=== PATIENT | male | born 1965 | race Caucasian/White ===

== ENCOUNTER 2025-02-25 14:52 | Inpatient (IN) | payer BC, MEDICARE ==
[~2025-02-25] VITALS: Ht 177.8 cm; Wt 100.3 kg
[2025-02-25] MEDS ORDERED: ABILIFY10 MG PO (14:55)
[2025-02-25] MEDS ORDERED: [UNRECOGNIZED DRUG - OTHER] IV (14:57)
[2025-02-25] MEDS ORDERED: DONEPEZIL HCL10 MG PO (14:59)
[2025-02-25] MEDS ORDERED: MEMANTINE HCL5 MG PO (15:00)
[2025-02-25] MEDS ORDERED: MULTI-VITAMIN1 EACH PO (15:01)
[2025-02-25] MEDS ORDERED: QUETIAPINE FUM100 M1 PO (15:02)
[2025-02-25] MEDS ORDERED: ROSUVASTATIN CA20 MG PO (15:03)
[2025-02-25] MEDS ORDERED: VALSARTAN160 MG PO (15:04)
[2025-02-25] MEDS ORDERED: ZOLOFT100 MG PO (15:04)
[2025-02-25] MEDS ORDERED: hydrOXYzine hydrochloride 50 MG/ML VIAL IM PRN (18:15)
[2025-02-25] MEDS ORDERED: LORazepam 1 MG TAB PO PRN (18:15)
[2025-02-25] MEDS ORDERED: Water, Sterile 10 ML VIAL IM PRN (18:20)
[2025-02-25] MEDS ORDERED: MG-AL HYDROXIDE/SIMETICONE 30 ML UDC PO PRN (18:55)
[2025-02-25] MEDS ORDERED: ACETAMINOPHEN 325 MG TAB PO PRN (18:55)
[2025-02-25] MEDS ORDERED: Menthol/Zinc Oxide 4 GM THIN T PRN (19:00)
[2025-02-25 19:30] VITALS: BP 143/72
[2025-02-25 20:51] VITALS: BP 143/72
[2025-02-25] MEDS ORDERED: DIVALPROEX (DR) 250 MG TAB PO SCH (21:00)
[2025-02-25] MEDS ORDERED: Memantine Hydrochloride 5 MG TAB PO SCH (21:00)
[2025-02-26 06:44] LABS: BASO # 0.0 10*3/uL (0.0-0.1); BASO % 0.7 % (0.0-1.0); EOS # 0.3 10*3/uL (0.0-0.4); EOS % 5.5 % (1.0-4.0); MEAN CELL VOLUME 94.9 fl (80.0-94.0); MEAN CORPUSCULAR HGB 29.9 pg (27.0-31.0); MEAN PLATELET VOLUME 10.1 fl (9.6-12.3); MONO # 0.5 10*3/uL (0.1-1.0); MONO % 9.5 % (3.0-9.0); NEUT # 3.7 10*3/uL (2.3-7.9); NEUT % 64.6 % (47.0-73.0); NUCLEATED RED BLOOD CELL 0.0 % (0.0-0.0); NUCLEATED RED BLOOD CELL 0.0 10*3/uL (0.0-0.0); PLATELET COUNT AUTOMATED 192 10*3/uL (130-400); RED CELL DISTRI WIDTH 12.8 % (0-14.5)
[2025-02-26 07:09] LABS: BUN 7 mg/dl (9-23); LDL CHOLESTEROL 71 mg/dL (9-159); SGPT/ALT 19 U/L (5-49); VALPROIC ACID (DEPAKENE) 14.8 ug/ml (50-100)
[2025-02-26 07:20] LABS: VITAMIN D, 25-HYDROXY 49.7 ng/mL (30-100)
[2025-02-26 08:41] VITALS: BP 141/72
[2025-02-26] MEDS ORDERED: Rivastigmine Tartrate 4.6 MG/24 HR PATCH T SCH (09:00)
[2025-02-26] MEDS ORDERED: HYDROCORTISONE 1% 28 GM TUBE T SCH (18:00)
[2025-02-26] MEDS ORDERED: HYDROCORTISONE 0.5% CREAM 30 GM TUBE T SCH (18:00)
[2025-02-26 20:00] VITALS: BP 131/67
[2025-02-26] MEDS ORDERED: Prazosin Hydrochloride 1 MG CAP PO SCH (21:00)
[2025-02-26] MEDS ORDERED: EUCERIN LOTION 120 GM TUBE T SCH (22:00)
[2025-02-26] MEDS ORDERED: PETROLATUM 42% 100 GM JAR T SCH (22:00)
[2025-02-27 08:00] VITALS: BP 139/71
[2025-02-27 19:48] VITALS: BP 128/58
[2025-02-28 08:00] VITALS: BP 178/81
[2025-02-28] MEDS ORDERED: Memantine Hydrochloride 5 MG TAB PO SCH (09:00)
[2025-02-28] MEDS ORDERED: METHYLFOLATE 7.5 MG PO SCH ×2 (10:00)
[2025-02-28 13:54] LABS: BILIRUBIN Negative (Negative); BLOOD Negative (Negative); CLARITY Clear (Clear); COLOR Yellow (Yellow); KETONE Negative (Negative); LEUKO ESTERASE Negative (Negative); NITRITE Negative (Negative); PH 7.0 (4.5-8.0); SPECIFIC GRAVITY 1.010 (1.001-1.030); UROBILINOGEN 1.0 E.U./dl (0.0-1.0)
[2025-02-28 14:09] LABS: EPITHELIAL CELLS 0-2; WBC 0-2 wbc/hpf (0-5)
[2025-02-28 20:00] VITALS: BP 118/75
[2025-03-01 08:00] VITALS: BP 123/53
[2025-03-01] MEDS ORDERED: DIVALPROEX (DR) 500 MG TAB PO SCH (09:00)
[2025-03-01] MEDS ORDERED: Rivastigmine Tartrate 9.5 MG/24 HR PATCH T SCH (09:00)
[2025-03-01] MEDS ORDERED: METHYLFOLATE 7.5 MG PO SCH (09:00)
[2025-03-01 20:00] VITALS: BP 118/56
[2025-03-01] MEDS ORDERED: diazePAM 10 MG/2 ML SYR IM ONE (21:10)
[2025-03-02 08:00] VITALS: BP 142/56
[2025-03-02 20:00] VITALS: BP 123/74
[2025-03-03 06:30] LABS: BASO # 0.0 10*3/uL (0.0-0.1); BASO % 0.5 % (0.0-1.0); EOS # 0.1 10*3/uL (0.0-0.4); EOS % 2.1 % (1.0-4.0); MEAN CELL VOLUME 94.5 fl (80.0-94.0); MEAN CORPUSCULAR HGB 30.2 pg (27.0-31.0); MEAN PLATELET VOLUME 10.3 fl (9.6-12.3); MONO # 0.8 10*3/uL (0.1-1.0); MONO % 12.1 % (3.0-9.0); NEUT # 4.1 10*3/uL (2.3-7.9); NEUT % 65.0 % (47.0-73.0); NUCLEATED RED BLOOD CELL 0.0 % (0.0-0.0); NUCLEATED RED BLOOD CELL 0.0 10*3/uL (0.0-0.0); PLATELET COUNT AUTOMATED 183 10*3/uL (130-400); RED CELL DISTRI WIDTH 13.1 % (0-14.5)
[2025-03-03 06:54] LABS: BUN 13 mg/dl (9-23); SGPT/ALT 19 U/L (5-49)
[2025-03-03 08:04] VITALS: BP 129/69
[2025-03-03] MEDS ORDERED: RIVASTIGMINE 13.3 MG/24 HR TDM T SCH (09:00)
[2025-03-04 09:34] VITALS: BP 124/66
[2025-03-04 20:00] VITALS: BP 117/90
[2025-03-05 08:46] VITALS: BP 138/73
[2025-03-05 20:00] VITALS: BP 122/72
[2025-03-06 08:00] VITALS: BP 156/60
[2025-03-06 20:30] VITALS: BP 103/66
[2025-03-06] MEDS ORDERED: DIVALPROEX SODIUM 125 MG CAP PO SCH (21:00)
[2025-03-07 08:00] VITALS: BP 141/72
[2025-03-07 20:00] VITALS: BP 151/89
[2025-03-08 08:00] VITALS: BP 128/80
[2025-03-08 11:56] LABS: BASO # 0.0 10*3/uL (0.0-0.1); BASO % 0.3 % (0.0-1.0); EOS # 0.0 10*3/uL (0.0-0.4); EOS % 0.1 % (1.0-4.0); MEAN CELL VOLUME 94.7 fl (80.0-94.0); MEAN CORPUSCULAR HGB 29.7 pg (27.0-31.0); MEAN PLATELET VOLUME 10.4 fl (9.6-12.3); MONO # 1.3 10*3/uL (0.1-1.0); MONO % 9.4 % (3.0-9.0); NEUT # 11.7 10*3/uL (2.3-7.9); NEUT % 84.9 % (47.0-73.0); NUCLEATED RED BLOOD CELL 0.0 % (0.0-0.0); NUCLEATED RED BLOOD CELL 0.0 10*3/uL (0.0-0.0); PLATELET COUNT AUTOMATED 227 10*3/uL (130-400); RED CELL DISTRI WIDTH 12.9 % (0-14.5)
[2025-03-08 12:19] LABS: BUN 15 mg/dl (9-23); SGPT/ALT 49 U/L (5-49)
[2025-03-08 13:36] LABS: BILIRUBIN Negative (Negative); BLOOD Negative (Negative); CLARITY Clear (Clear); COLOR Dark Yellow (Yellow); KETONE 1+ (Negative); LEUKO ESTERASE Negative (Negative); NITRITE Negative (Negative); PH 6.5 (4.5-8.0); SPECIFIC GRAVITY >= 1.030 (1.001-1.030); UROBILINOGEN 1.0 E.U./dl (0.0-1.0)
[2025-03-08 13:52] LABS: BACTERIA 1+; EPITHELIAL CELLS 0-2; MUCOUS TRACE; WBC 0-2 wbc/hpf (0-5)
[2025-03-08] MEDS ORDERED: TRIAMCINOLONE ACETONIDE 15 GM TUBE T SCH (14:45)
[2025-03-08] MEDS ORDERED: SODIUM CHLORIDE 0.9% 1,000 ML IV ONE (18:55)
[2025-03-08 20:00] VITALS: BP 105/56
[2025-03-09 06:27] LABS: MEAN CELL VOLUME 93.5 fl (80.0-94.0); MEAN CORPUSCULAR HGB 29.5 pg (27.0-31.0); MEAN PLATELET VOLUME 10.3 fl (9.6-12.3); NUCLEATED RED BLOOD CELL 0.0 % (0.0-0.0); NUCLEATED RED BLOOD CELL 0.0 10*3/uL (0.0-0.0); PLATELET COUNT AUTOMATED 199 10*3/uL (130-400); RED CELL DISTRI WIDTH 13.0 % (0-14.5)
[2025-03-09 06:38] LABS: MANUAL DIFF REFLEX YES
[2025-03-09 06:48] LABS: BUN 15 mg/dl (9-23)
[2025-03-09 08:13] LABS: PLATELET SUFFICIENCY NORMAL (NORMAL)
[2025-03-09 08:28] VITALS: BP 131/91
[2025-03-09] MEDS ORDERED: FOAM BANDAGE 5X5 T ONE (16:35)
[2025-03-10 06:24] LABS: MEAN CELL VOLUME 93.3 fl (80.0-94.0); MEAN CORPUSCULAR HGB 30.3 pg (27.0-31.0); MEAN PLATELET VOLUME 10.7 fl (9.6-12.3); NUCLEATED RED BLOOD CELL 0.0 % (0.0-0.0); NUCLEATED RED BLOOD CELL 0.0 10*3/uL (0.0-0.0); PLATELET COUNT AUTOMATED 212 10*3/uL (130-400); RED CELL DISTRI WIDTH 12.7 % (0-14.5)
[2025-03-10 06:31] LABS: MANUAL DIFF REFLEX YES
[2025-03-10 07:13] LABS: PLATELET SUFFICIENCY NORMAL (NORMAL)
[2025-03-10 08:00] VITALS: BP 126/72
[2025-03-10 20:21] VITALS: BP 126/83
[2025-03-11 09:20] VITALS: BP 141/77
[2025-03-11 20:00] VITALS: BP 86/55
[2025-03-12 08:00] VITALS: BP 106/63
[2025-03-12 20:00] VITALS: BP 115/96
[2025-03-13 07:20] LABS: BASO # 0.1 10*3/uL (0.0-0.1); BASO % 0.7 % (0.0-1.0); EOS # 0.3 10*3/uL (0.0-0.4); EOS % 2.8 % (1.0-4.0); MEAN CELL VOLUME 93.0 fl (80.0-94.0); MEAN CORPUSCULAR HGB 30.0 pg (27.0-31.0); MEAN PLATELET VOLUME 10.0 fl (9.6-12.3); MONO # 1.5 10*3/uL (0.1-1.0); MONO % 14.2 % (3.0-9.0); NEUT # 7.1 10*3/uL (2.3-7.9); NEUT % 67.7 % (47.0-73.0); NUCLEATED RED BLOOD CELL 0.0 % (0.0-0.0); NUCLEATED RED BLOOD CELL 0.0 10*3/uL (0.0-0.0); PLATELET COUNT AUTOMATED 258 10*3/uL (130-400); RED CELL DISTRI WIDTH 13.0 % (0-14.5)
[2025-03-13 08:00] VITALS: BP 120/88
[2025-03-13 08:00] LABS: BUN 25 mg/dl (9-23); SGPT/ALT 84 U/L (5-49)
[2025-03-13 20:00] VITALS: BP 150/89
[2025-03-14 08:20] VITALS: BP 90/50
[2025-03-14 20:00] VITALS: BP 116/70
[2025-03-15 09:26] VITALS: BP 118/65
[2025-03-15] MEDS ORDERED: RIVASTIGMINE1 EAC2 T (12:18)
[2025-03-15] MEDS ORDERED: MEMANTINE HCL10 MG PO (12:18)
[2025-03-15] MEDS ORDERED: MIRTAZAPINE15 M2 PO (12:18)
[2025-03-15] MEDS ORDERED: DEPLIN-ALGAL O1 EACH PO (12:19)
[2025-03-15 20:00] VITALS: BP 140/72
[2025-03-15] MEDS ORDERED: Mirtazapine 15 MG TAB PO SCH (21:00)
[2025-03-16 08:00] VITALS: BP 98/56
[2025-03-16 20:00] VITALS: BP 131/91
[2025-03-17 08:00] VITALS: BP 111/54
[2025-03-17 20:00] VITALS: BP 108/70
[2025-03-18 07:11] LABS: BUN 11 mg/dl (9-23); SGPT/ALT 50 U/L (5-49)
[2025-03-18 07:48] LABS: BASO # 0.0 10*3/uL (0.0-0.1); BASO % 0.5 % (0.0-1.0); EOS # 0.4 10*3/uL (0.0-0.4); EOS % 4.6 % (1.0-4.0); MEAN CELL VOLUME 94.2 fl (80.0-94.0); MEAN CORPUSCULAR HGB 29.7 pg (27.0-31.0); MEAN PLATELET VOLUME 10.0 fl (9.6-12.3); MONO # 1.2 10*3/uL (0.1-1.0); MONO % 14.2 % (3.0-9.0); NEUT # 5.6 10*3/uL (2.3-7.9); NEUT % 63.3 % (47.0-73.0); NUCLEATED RED BLOOD CELL 0.0 % (0.0-0.0); NUCLEATED RED BLOOD CELL 0.0 10*3/uL (0.0-0.0); PLATELET COUNT AUTOMATED 250 10*3/uL (130-400); RED CELL DISTRI WIDTH 12.7 % (0-14.5)
[2025-03-18 08:00] VITALS: BP 103/56
[2025-03-18 20:11] VITALS: BP 128/62
== END 2025-03-18 23:22 | DRG 883 ==
LOC: 3N 14:52
PROVIDERS: Counselor Professional; Nurse Practitioner; Nurse Practitioner Women's Health; ADMIT Psychiatry & Neurology Psychiatry; ATTEND Psychiatry & Neurology Psychiatry
PROC: GZHZZZZ Group Psychotherapy (ICD-10-PCS; principal; 2025-02-27)
PROC: GZ56ZZZ Individual Psychotherapy, Supportive (ICD-10-PCS; 2025-02-27)
DX: F63.81 Intermittent explosive disorder (principal); F02.811 Dementia in other diseases classified elsewhere, unspecified severity, with agitation; F02.83 Dementia in other diseases classified elsewhere, unspecified severity, with mood disturbance; E44.0 Moderate protein-calorie malnutrition; F33.9 Major depressive disorder, recurrent, unspecified; E87.1 Hypo-osmolality and hyponatremia; G30.0 Alzheimer's disease with early onset; I10 Essential (primary) hypertension; D53.9 Nutritional anemia, unspecified; D72.829 Elevated white blood cell count, unspecified; R73.9 Hyperglycemia, unspecified; Z88.8 Allergy status to other drugs, medicaments and biological substances; Z79.899 Other long term (current) drug therapy; Z79.01 Long term (current) use of anticoagulants; Z79.2 Long term (current) use of antibiotics; Z68.31 Body mass index [BMI] 31.0-31.9, adult